=== PATIENT | female | born 1955 | race Caucasian/White ===

== ENCOUNTER → 2018-08-20 | Outpatient (CLI) | payer BC | LOC: M RAD 10:01 | DX: Z12.31 Encounter for screening mammogram for malignant neoplasm of breast (principal); Z92.0 Personal history of contraception; Z92.23 Personal history of estrogen therapy | CPT/HCPCS: 77067 ==

== ENCOUNTER 2019-02-23 07:35 | Day surgery (SDC) | payer BC ==
[~2019-02-23] VITALS: Ht 160 cm; Wt 64.0 kg
[~2019-02-23 07:35] MED LIST: MULTCAP PO; NS 1,000 ML IV ONE; VITAD1000T PO
[2019-02-23] MEDS ORDERED: PROPOFOL 200 MG/20 ML VIAL As Ordered ONE (08:28)
[2019-02-23] MEDS ORDERED: LIDOCAINE 2% INJ 100 MG/5 ML SDV (FOR ANES.) As Ordered ONE (08:48)
--- NOTE | 2019-02-23 08:52 | ROOR ---
Patient Name: Radha Richardson Procedure Date: 02/23/2019 8:30 AM Date of : 1955 Age: 63 Room: [facility] Gender: Female Note Status: Finalized Procedure: Total Colonoscopy to Cecum + Cold Snare Polypectomy Indications: Screening for colorectal malignant neoplasm Providers: Rhys Remy MD Referring MD: DINO GRANGER NP Requesting Provider: Medicines: Monitored Anesthesia Care Complications: No immediate complications. Procedure: Pre-Anesthesia Assessment: - The heart rate, respiratory rate, oxygen saturations, blood pressure, adequacy of pulmonary ventilation, and response to care were monitored throughout the procedure. The Colonoscope was introduced through the anus and advanced to the cecum, identified by appendiceal orifice and ileocecal valve. The colonoscopy was performed without difficulty. The patient tolerated the procedure well. The quality of the bowel preparation was excellent. Findings: The perianal and digital rectal examinations were normal. Non-bleeding internal hemorrhoids were found during retroflexion. The hemorrhoids were small and Grade I (internal hemorrhoids that do not prolapse). Multiple small and large-mouthed diverticula were found in the recto-sigmoid colon, sigmoid colon and descending colon. A small polyp was found at 30 cm proximal to the anus. The polyp was sessile. The polyp was removed with a cold snare. Resection and retrieval were complete. The exam was otherwise without abnormality on direct and retroflexion views. Impression: - Non-bleeding internal hemorrhoids. - Diverticulosis in the recto-sigmoid colon, in the sigmoid colon and in the descending colon. - One small polyp at 30 cm proximal to the anus, removed with a cold snare. Resected and retrieved. - The examination was otherwise normal on direct and retroflexion views. - The exam was otherwise normal to the cecum. Recommendation: - Patient has a contact number available for emergencies. The signs and symptoms of potential delayed complications were discussed with the patient. Return to normal activities tomorrow. Written discharge instructions were provided to the patient. - High fiber diet. - Discharge patient to home. - Continue present medications. - Await pathology results. - Telephone GI clinic for pathology results in 1 week. - Return to referring physician. - Repeat colonoscopy in 5 years for surveillance. - The findings and recommendations were discussed with the patient's family. Rhys Remy MD Rhys Remy MD 02/23/2019 8:52:28 AM Electronically signed by Rhys Remy MD Number of Addenda: 0 Note Initiated On: 02/23/2019 8:30 AM Estimated Blood Loss: Estimated blood loss: none.
[2019-02-23 09:22] VITALS: BP 115/70
== END 2019-02-23 09:27 | disposition home or self-care (01) ==
LOC: M OPP 07:35
PROVIDERS: ATTEND Internal Medicine Gastroenterology
DX: Z12.11 Encounter for screening for malignant neoplasm of colon (principal); K64.0 First degree hemorrhoids; D12.6 Benign neoplasm of colon, unspecified; K57.30 Diverticulosis of large intestine without perforation or abscess without bleeding; Z87.891 Personal history of nicotine dependence; Z88.2 Allergy status to sulfonamides

== ENCOUNTER → 2019-08-24 | Outpatient (CLI) | payer OTHER ==
[~2019-08-24] MED LIST changes: +CHOL100029 PO; -NS 1,000 ML IV ONE; -VITAD1000T PO
--- NOTE | 2019-08-24 12:52 | REPMRS ---
Patient History The patient states she had a clinical breast exam in 2018. Family history of unknown cancer at age 80 in father. Took hormonal contraceptives for 8 years. Taking estrogen for 15 years. Digital Mammo Screening Bilat: August 24, 2019 - Exam #: [id number] Bilateral CC and MLO view(s) were taken. Technologist: Radha Broussard, Technologist Prior study comparison: August 20, 2018, bilateral digital mammo screening bilat performed at [facility]. August 19, 2017, bilateral digital mammo screening bilat performed at [facility]. August 16, 2016, bilateral digital mammo screening bilat performed at [facility]. FINDINGS: The breast tissue is heterogeneously dense. This may lower the sensitivity of mammography. There is a moderate amount of heterogeneously dense fibroglandular tissue which is fairly symmetric. There is no interval development of dominant mass, architectural distortion, or grouped microcalcification typical of malignancy. There has been no change in the appearance of the mammogram from the prior studies. 3-D tomosynthesis shows no additional findings. Assessment: BI-RADS/ACR category 1 mammogram. Negative Mammogram. Recommendation Routine screening mammogram of both breasts in 1 year (for women over age 40). This patient's Lifetime Breast Cancer RIsk is estimated at 5.2 %. This mammogram was interpreted with the aid of an FDA-approved computer-aided dectection system. Electronically Signed By: Neftali Reddy MD 08/24/19 [id number]
== END ==
LOC: M RAD 10:35
PROVIDERS: ATTEND Obstetrics & Gynecology
DX: Z12.31 Encounter for screening mammogram for malignant neoplasm of breast (principal)

== ENCOUNTER → 2020-09-06 | Outpatient (CLI) | payer MEDICARE ==
--- NOTE | 2020-09-06 13:38 | REPMRS ---
Patient History The patient states she has not had a clinical breast exam in over a year. Family history of unknown cancer at age 80 in father. Took hormonal contraceptives for 8 years. Took estrogen for 15 years. 3D TOMOSYNTHESIS WAS PERFORMED. The [place]al[place] lifetime risk for breast cancer is 5.0%. Volpara breast density c. Digital Woman Screen Mammo: September 06, 2020 - Exam #: [id number] Bilateral CC and MLO view(s) were taken. Technologist: Lisa Barber Technologist Prior study comparison: August 24, 2019, bilateral digital mammo screening bilat, performed at [facility]. August 20, 2018, bilateral digital mammo screening bilat, performed at [facility]. FINDINGS: The breast tissue is heterogeneously dense. This may lower the sensitivity of mammography. There has been no change in the appearance of the mammogram from the prior studies. There is a moderate amount of residual fibroglandular tissue which is fairly symmetric. There is no interval development of dominant mass, areas of architectural distortion, or clustered microcalcification typical of malignancy. Assessment: BI-RADS/ACR category 1 mammogram. Negative Mammogram. Recommendation Routine screening mammogram in 1 year (for women over age 40). This mammogram was interpreted with the aid of an FDA-approved computer-aided dectection system. Electronically Signed By: Keenan Mcintosh MD 09/06/20 [id number]
== END ==
LOC: M WHC 12:54
PROVIDERS: ATTEND Registered Nurse
DX: Z12.31 Encounter for screening mammogram for malignant neoplasm of breast (principal); Z80.3 Family history of malignant neoplasm of breast; Z92.0 Personal history of contraception

== ENCOUNTER → 2021-01-17 | Outpatient (CLI) | payer MEDICARE ==
--- NOTE | 2021-01-17 13:08 | REP ---
INDICATION: HEEL PAIN COMPARISON: None. TECHNIQUE: There are four views. FINDINGS: Mineralization is normal. In particular calcaneal mineralization is normal. There are calcaneal plantar and Achilles spurs. The calcaneus is otherwise unremarkable. There is mild joint space narrowing at the great toe MTP articulation and there are subcortical cysts in the great toe metatarsal head. These findings are consistent with osteoarthritis. The joint spaces are otherwise unremarkable. There are no calcifications or foreign bodies. IMPRESSION: Calcaneal plantar and Achilles spurs. The calcaneus is otherwise unremarkable. 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 <Electronically signed by Keenan Bacon > 01/17/21 [id number]
== END ==
LOC: M WUC 11:04
PROVIDERS: ATTEND Physician Assistant Medical
DX: M77.32 Calcaneal spur, left foot (principal); M19.072 Primary osteoarthritis, left ankle and foot

== ENCOUNTER → 2021-11-08 | Outpatient (CLI) | payer MEDICARE | LOC: M WHC 13:20 | PROVIDERS: ATTEND Obstetrics & Gynecology | DX: Z12.31 Encounter for screening mammogram for malignant neoplasm of breast (principal); Z80.9 Family history of malignant neoplasm, unspecified ==

== ENCOUNTER → 2022-11-11 | Outpatient (CLI) | payer MEDICARE | LOC: M WHC 14:00 | PROVIDERS: ATTEND Registered Nurse | DX: Z12.31 Encounter for screening mammogram for malignant neoplasm of breast (principal); Z13.820 Encounter for screening for osteoporosis; M85.88 Other specified disorders of bone density and structure, other site ==

== ENCOUNTER → 2023-11-24 | Outpatient (CLI) | payer MEDICARE | LOC: M WHC 12:02 | PROVIDERS: ATTEND Physician Assistant Medical | DX: Z12.31 Encounter for screening mammogram for malignant neoplasm of breast (principal); R92.333 Mammographic heterogeneous density, bilateral breasts ==

== ENCOUNTER 2024-07-07 07:05 | Day surgery (SDC) | payer MEDICARE ==
[~2024-07-07] VITALS: Ht 157.5 cm; Wt 65.8 kg
[~2024-07-07 07:05] MED LIST changes: +ATOR1TAB21 PO; +NOXI1TAB PO; +NS 1,000 ML IV ONE; +THERTAB52 PO
[2024-07-07] MEDS ORDERED: LIDOCAINE 2% 100MG/5ML SDV (FOR ANES.) As Ordered ONE (08:18)
[2024-07-07] MEDS ORDERED: propofoL 200 MG/20 ML VIAL As Ordered ONE (08:18)
[2024-07-07 08:39] VITALS: TEMP 98.2
[2024-07-07 08:56] VITALS: BP 138/85; O2SAT 95
== END 2024-07-07 09:00 | disposition home or self-care (01) ==
LOC: M OPP 07:05
PROVIDERS: ATTEND Internal Medicine Gastroenterology
DX: Z12.11 Encounter for screening for malignant neoplasm of colon (principal); K64.0 First degree hemorrhoids; K57.30 Diverticulosis of large intestine without perforation or abscess without bleeding; I10 Essential (primary) hypertension; Z88.2 Allergy status to sulfonamides; Z86.010 Personal history of colon polyps; F10.10 Alcohol abuse, uncomplicated; Z87.891 Personal history of nicotine dependence; Z79.899 Other long term (current) drug therapy

== ENCOUNTER → 2024-12-02 | Outpatient (CLI) | payer MEDICARE ==
[~2024-12-02] MED LIST changes: -NS 1,000 ML IV ONE
== END ==
LOC: M WHC 14:31
PROVIDERS: ATTEND Physician Assistant Medical
DX: Z12.31 Encounter for screening mammogram for malignant neoplasm of breast (principal); R92.333 Mammographic heterogeneous density, bilateral breasts

== ENCOUNTER → 2025-03-02 | Outpatient (CLI) | payer MEDICARE | LOC: M WHC 12:28 | PROVIDERS: ATTEND Physician Assistant Medical | DX: M19.90 Unspecified osteoarthritis, unspecified site (principal); Z78.0 Asymptomatic menopausal state ==